=== PATIENT | male | born 1995 | race Two or more races ===

== ENCOUNTER 2021-02-03 11:10 | Emergency (ER) | payer OTHER ==
[~2021-02-03] VITALS: Ht 185.4 cm; Wt 130.0 kg
[2021-02-03] MEDS ORDERED: FAMOTIDINE 20 MG/2 ML IVPush ONE (12:00)
[2021-02-03] MEDS ORDERED: ONDANSETRON 2MG/ML, 2ML IVPush ONE (12:00)
[2021-02-03] MEDS ORDERED: SODIUM CHLORIDE FLUSH 10ML SYR IVF ONE (12:00)
[2021-02-03] MEDS ORDERED: ACETAMINOPHEN 500 MG TABLET PO ONE (12:00)
[2021-02-03] MEDS ORDERED: SODIUM CHLORIDE 0.9% 1,000ML IVBOLUS ONE (12:00)
[2021-02-03] MEDS ORDERED: MAALOX/HYOSCYAMINE/LIDOCAINE 45 ML BTL PO ONE (12:00)
[2021-02-03 12:46] LABS: BASOPHILS % (AUTO) 1 % (0-1); EOSINOPHILS % (AUTO) 0 % (1-7); LYMPHOCYTES % (AUTO) 23 % (22-44); MEAN CORPUSCULAR HEMOGLOBIN 30.1 pg (27.5-34.5); MEAN CORPUSCULAR HGB CONC 33.6 g/dL (33.2-36.2); MEAN PLATELET VOLUME 7.8 fL (7.4-10.4); MONOCYTES % (AUTO) 9 % (2-9); NEUTROPHILS % (AUTO) 68 % (42-75); PLATELET COUNT 203 x10^3/uL (130-400); RED BLOOD COUNT 5.23 x10^6/uL (4.38-5.82); RED CELL DISTRIBUTION WIDTH 13.7 % (9.4-14.8)
[2021-02-03 13:00] LABS: ALANINE AMINOTRANSFERASE 74 U/L (12-78); ALBUMIN 3.7 g/dL (3.4-5.0); ANION GAP 4 mmol/L (5-15); CALCIUM 8.7 mg/dL (8.5-10.1); CHLORIDE 104 mmol/L (98-107)
[2021-02-03 13:03] LABS: ALKALINE PHOSPHATASE 82 U/L (45-117); BILIRUBIN,TOTAL 0.5 mg/dL (0.2-1.0); CREATININE 1.07 mg/dL (0.7-1.3); TOTAL PROTEIN 7.5 g/dL (6.4-8.2)
--- NOTE | 2021-02-03 14:44 | NUR ---
PATIENT AMBULATORY TO ROOM AT THIS TIME.
[2021-02-03] MEDS ORDERED: ONDANSETRON 2MG/ML, 2ML ONE (14:54)
[2021-02-03] MEDS ORDERED: FAMOTIDINE 20 MG/2 ML ONE (14:55)
[2021-02-03] MEDS ORDERED: ACETAMINOPHEN 500 MG TABLET ONE (14:55)
[2021-02-03] MEDS ORDERED: MAALOX/HYOSCYAMINE/LIDOCAINE 45 ML BTL ONE (14:55)
--- NOTE | 2021-02-03 15:08 | NUR ---
PT AMBULATORY TO ROOM T2 W/ C/O N/V AND KAUR STARTED SUNDAY. PT DENIES SORE THROAT/BODY ACHES. NOTED TO HAVE FEVER 100.6 ON ARRIVAL TO ED. 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 PT STATES BROTHER ALSO SICK W/ SIMILAR SX BUT PT'S BROTHER IS NOW IMPROVED. PT RESTING ON GURNEY. NADN. MONITORS APPLIED. VSS. CALL LIGHT IN REACH.
[2021-02-03] MEDS ORDERED: KETOROLAC 30 MG/1 ML ONE (15:55)
[2021-02-03 15:59] VITALS: BP 131/86
--- NOTE | 2021-02-03 15:59 | NUR ---
PT RESTING ON GURNEY. NADN. BERMUDEZ.
[2021-02-03] MEDS ORDERED: KETOROLAC 15 MG/1ML IVPush ONE (16:00)
== END 2021-02-03 16:49 | disposition home or self-care (01) ==
LOC: ED 13:00
DX: U07.1 COVID-19 (principal); R50.9 Fever, unspecified; R51.9 Headache, unspecified
CPT/HCPCS: 36415; 80053; 85025; 96361; 96374; 96375; 99284; J1885; J2405; J7030; U0003; U0005

== ENCOUNTER 2021-02-07 14:44 | Inpatient (IN) | payer OTHER ==
[~2021-02-07] VITALS: Ht 185.4 cm; Wt 123.6 kg
[2021-02-07] MEDS ORDERED: DEXAMETHASONE 4 MG/ML, 1ML PO ONE (16:00)
[2021-02-07 16:35] LABS: BASOPHILS % (AUTO) 1 % (0-1); EOSINOPHILS % (AUTO) 0 % (1-7); LYMPHOCYTES % (AUTO) 13 % (22-44); MEAN CORPUSCULAR HEMOGLOBIN 29.9 pg (27.5-34.5); MEAN CORPUSCULAR HGB CONC 33.5 g/dL (33.2-36.2); MONOCYTES % (AUTO) 8 % (2-9); NEUTROPHILS % (AUTO) 79 % (42-75); PLATELET COUNT 263 x10^3/uL (130-400); RED BLOOD COUNT 5.29 x10^6/uL (4.38-5.82); RED CELL DISTRIBUTION WIDTH 13.8 % (9.4-14.8)
[2021-02-07 16:46] LABS: ALBUMIN 3.4 g/dL (3.4-5.0); ANION GAP 7 mmol/L (5-15); CALCIUM 9.5 mg/dL (8.5-10.1); CHLORIDE 101 mmol/L (98-107)
[2021-02-07 16:47] LABS: CREATININE 1.08 mg/dL (0.7-1.3)
[2021-02-07] MEDS ORDERED: CEFTRIAXONE 1,000 MG in DEXTROSE 5% 50 ML IVPB ONE (20:00)
[2021-02-07] MEDS ORDERED: DOXYCYCLINE 100MG TABLET PO ONE (20:00)
--- NOTE | 2021-02-07 20:14 | NUR ---
PT CAME IN CO SOB. PT WAS TESTED FOR COVID THUSDAY AND HAD A POSTIVE RESULT. PT FOUND TO BE HYPOXIC ON ROOM AIR. NOTIFIED. PT PLACED ON 4 LITERS 02. FATHER BEDSIDE. TBADM. CONNECTED TO ALL MONITORS
[2021-02-07] MEDS ORDERED: DOXYCYCLINE 100MG TABLET ONE (20:16)
[2021-02-07] MEDS ORDERED: DEXAMETHASONE 4 MG/ML, 5ML ONE (20:16)
--- NOTE | 2021-02-07 20:40 | NUR ---
BLOOD CULTURES DRAWN X 2 PRIOR TO ADM OF ABX
[2021-02-07 20:43] LABS: C-REACTIVE PROTEIN, QUANT 8.3 mg/dL (0.02-0.49)
[2021-02-07 20:51] LABS: D-DIMER (DIC) 0.32 ug/mlFEU (0.00-0.52); PROTIME 10.9 Seconds (9.6-11.5)
[2021-02-07] MEDS ORDERED: ONDANSETRON ODT 4 MG PO PRN (21:30)
[2021-02-07] MEDS ORDERED: LABETALOL 5MG/ML, 20ML IVPush PRN (21:30)
[2021-02-07] MEDS ORDERED: ENALAPRILAT 1.25 MG/ML, 2ML IVPush PRN (21:30)
[2021-02-07] MEDS ORDERED: POLYETHYLENE GLYCOL 17 GM PACKET PO PRN (21:30)
[2021-02-07] MEDS ORDERED: KETOROLAC 30 MG/1 ML IV PRN (21:30)
[2021-02-07] MEDS ORDERED: ACETAMINOPHEN 325 MG TABLET PO PRN (21:30)
[2021-02-07] MEDS ORDERED: SODIUM CHLORIDE 0.9% 1,000 ML IV SCH (21:30)
[2021-02-07] MEDS ORDERED: BISACODYL 10 MG SUPP PR PRN (21:30)
[2021-02-07] MEDS ORDERED: ONDANSETRON 2MG/ML, 2ML IVPush PRN (21:30)
[2021-02-07] MEDS ORDERED: DOCUSATE 100 MG CAPSULE PO PRN (21:30)
[2021-02-07 21:53] LABS: ALANINE AMINOTRANSFERASE 93 U/L (12-78); ALBUMIN 3.5 g/dL (3.4-5.0); ANION GAP 11 mmol/L (5-15); CALCIUM 9.4 mg/dL (8.5-10.1); CHLORIDE 101 mmol/L (98-107); CREATININE 1.12 mg/dL (0.7-1.3)
[2021-02-07 21:55] LABS: ALKALINE PHOSPHATASE 91 U/L (45-117); BILIRUBIN,TOTAL 0.5 mg/dL (0.2-1.0)
[2021-02-07] MEDS ORDERED: REMDESIVIR 200 MG in SODIUM CHLORIDE 0.9% 250 ML IVPB ONE (22:30)
[2021-02-07 23:04] VITALS: BP 118/77
[2021-02-07] MEDS: ASCORBIC ACID 500 MG TABLET PO SCH (23:09)
[2021-02-07] MEDS: GUAIFENESIN ER 600 MG TABLET PO SCH (23:09)
[2021-02-07] MEDS: THIAMINE 100MG TABLET PO SCH (23:10)
[2021-02-07] MEDS: CHOLECALCIFEROL 5,000u TAB PO SCH (23:10)
[2021-02-07] MEDS: ENOXAPARIN 40 MG/0.4 ML SQ SCH (23:10)
[2021-02-08 01:12] VITALS: BP 131/76
[2021-02-08 06:27] LABS: BASOPHILS % (AUTO) 0 % (0-1); EOSINOPHILS % (AUTO) 0 % (1-7); LYMPHOCYTES % (AUTO) 18 % (22-44); MEAN CORPUSCULAR HGB CONC 33.5 g/dL (33.2-36.2); MEAN PLATELET VOLUME 7.8 fL (7.4-10.4); MONOCYTES % (AUTO) 11 % (2-9); NEUTROPHILS % (AUTO) 71 % (42-75); PLATELET COUNT 268 x10^3/uL (130-400); RED BLOOD COUNT 4.86 x10^6/uL (4.38-5.82); RED CELL DISTRIBUTION WIDTH 13.7 % (9.4-14.8)
[2021-02-08 06:40] LABS: CHLORIDE 103 mmol/L (98-107)
[2021-02-08 06:46] LABS: ALANINE AMINOTRANSFERASE 91 U/L (12-78); ALBUMIN 2.9 g/dL (3.4-5.0); ALKALINE PHOSPHATASE 85 U/L (45-117); ANION GAP 7 mmol/L (5-15); BILIRUBIN,TOTAL 0.4 mg/dL (0.2-1.0); CALCIUM 8.8 mg/dL (8.5-10.1); CREATININE 0.98 mg/dL (0.7-1.3); TOTAL PROTEIN 7.4 g/dL (6.4-8.2)
[2021-02-08 07:38] VITALS: BP 145/79
[2021-02-08] MEDS: THIAMINE 100MG TABLET PO SCH (11:26)
[2021-02-08] MEDS: GUAIFENESIN ER 600 MG TABLET PO SCH ×2 (11:26→20:33)
[2021-02-08] MEDS: DEXAMETHASONE 4 MG/ML, 1ML IVPush SCH (11:26)
[2021-02-08] MEDS: ASCORBIC ACID 500 MG TABLET PO SCH ×2 (11:27→20:33)
[2021-02-08] MEDS: ZINC SULFATE 220 MG CAPSULE PO SCH (11:27)
[2021-02-08] MEDS: CHOLECALCIFEROL 5,000u TAB PO SCH (11:27)
[2021-02-08] MEDS: DOXYCYCLINE 100MG TABLET PO SCH ×2 (11:27→20:33)
[2021-02-08 12:45] VITALS: BP 135/80
[2021-02-08 19:59] VITALS: BP 135/86
[2021-02-08] MEDS: ENOXAPARIN 40 MG/0.4 ML SQ SCH (20:33)
[2021-02-08] MEDS: CEFTRIAXONE 1,000 MG in DEXTROSE 5% 50 ML IVPB SCH (20:33)
[2021-02-08] MEDS: MELATONIN 5 MG TABLET PO PRN (20:33)
[2021-02-08] MEDS: REMDESIVIR 100 MG in SODIUM CHLORIDE 0.9% 250 ML IVPB SCH (22:21)
[2021-02-09 01:42] VITALS: BP 116/69
[2021-02-09 05:04] LABS: HCT (SEDRATE) 41.9 % (39.2-51.8)
[2021-02-09 05:15] LABS: BASOPHILS % (AUTO) 0 % (0-1); EOSINOPHILS % (AUTO) 0 % (1-7); LYMPHOCYTES % (AUTO) 12 % (22-44); MEAN CORPUSCULAR HEMOGLOBIN 30.3 pg (27.5-34.5); MEAN CORPUSCULAR HGB CONC 33.7 g/dL (33.2-36.2); MEAN PLATELET VOLUME 7.8 fL (7.4-10.4); MONOCYTES % (AUTO) 10 % (2-9); NEUTROPHILS % (AUTO) 78 % (42-75); PLATELET COUNT 300 x10^3/uL (130-400); RED BLOOD COUNT 4.73 x10^6/uL (4.38-5.82)
[2021-02-09 05:16] LABS: ALBUMIN 2.8 g/dL (3.4-5.0); CALCIUM 8.9 mg/dL (8.5-10.1); CHLORIDE 104 mmol/L (98-107)
[2021-02-09 05:31] LABS: ALANINE AMINOTRANSFERASE 136 U/L (12-78); ALKALINE PHOSPHATASE 84 U/L (45-117); ANION GAP 10 mmol/L (5-15); BILIRUBIN,TOTAL 0.4 mg/dL (0.2-1.0); CREATININE 0.67 mg/dL (0.7-1.3); TOTAL PROTEIN 7.1 g/dL (6.4-8.2)
[2021-02-09 07:40] VITALS: BP 121/82
[2021-02-09] MEDS: DEXAMETHASONE 4 MG/ML, 1ML IVPush SCH (09:41)
[2021-02-09] MEDS: CHOLECALCIFEROL 5,000u TAB PO SCH (09:41)
[2021-02-09] MEDS: THIAMINE 100MG TABLET PO SCH (09:41)
[2021-02-09] MEDS: ASCORBIC ACID 500 MG TABLET PO SCH ×2 (09:41→20:34)
[2021-02-09] MEDS: GUAIFENESIN ER 600 MG TABLET PO SCH ×2 (09:41→20:34)
[2021-02-09] MEDS: DOXYCYCLINE 100MG TABLET PO SCH ×2 (09:41→20:35)
[2021-02-09 09:49] VITALS: BP 122/67
[2021-02-09] MEDS: ZINC SULFATE 220 MG CAPSULE PO SCH (13:29)
[2021-02-09 13:56] VITALS: BP 141/76
[2021-02-09] MEDS ORDERED: FAMOTIDINE 20 MG TABLET PO PRN (16:30)
[2021-02-09] MEDS: CEFTRIAXONE 1,000 MG in DEXTROSE 5% 50 ML IVPB SCH (20:34)
[2021-02-09] MEDS: MELATONIN 5 MG TABLET PO PRN (20:35)
[2021-02-09] MEDS: ENOXAPARIN 40 MG/0.4 ML SQ SCH (20:40)
[2021-02-09 20:42] VITALS: BP 134/83
[2021-02-09] MEDS: REMDESIVIR 100 MG in SODIUM CHLORIDE 0.9% 250 ML IVPB SCH (22:41)
[2021-02-10 02:11] VITALS: BP 121/71
[2021-02-10 05:15] LABS: BASOPHILS % (AUTO) 0 % (0-1); EOSINOPHILS % (AUTO) 0 % (1-7); LYMPHOCYTES % (AUTO) 17 % (22-44); MEAN CORPUSCULAR HEMOGLOBIN 30.3 pg (27.5-34.5); MEAN PLATELET VOLUME 7.4 fL (7.4-10.4); MONOCYTES % (AUTO) 12 % (2-9); NEUTROPHILS % (AUTO) 71 % (42-75); PLATELET COUNT 370 x10^3/uL (130-400); RED BLOOD COUNT 4.68 x10^6/uL (4.38-5.82); RED CELL DISTRIBUTION WIDTH 13.6 % (9.4-14.8)
[2021-02-10 05:22] LABS: ANION GAP 8 mmol/L (5-15); CALCIUM 8.9 mg/dL (8.5-10.1); CHLORIDE 107 mmol/L (98-107)
[2021-02-10 05:23] LABS: ALANINE AMINOTRANSFERASE 165 U/L (12-78); ALBUMIN 2.8 g/dL (3.4-5.0)
[2021-02-10 05:25] LABS: ALKALINE PHOSPHATASE 85 U/L (45-117); BILIRUBIN,TOTAL 0.5 mg/dL (0.2-1.0)
[2021-02-10] MEDS: DOXYCYCLINE 100MG TABLET PO SCH ×2 (09:34→21:10)
[2021-02-10] MEDS: ASCORBIC ACID 500 MG TABLET PO SCH ×2 (09:34→21:10)
[2021-02-10] MEDS: GUAIFENESIN ER 600 MG TABLET PO SCH ×2 (09:34→21:10)
[2021-02-10] MEDS: CHOLECALCIFEROL 5,000u TAB PO SCH (09:34)
[2021-02-10] MEDS: THIAMINE 100MG TABLET PO SCH (09:35)
[2021-02-10] MEDS: DEXAMETHASONE 4 MG/ML, 1ML IVPush SCH (09:35)
[2021-02-10 14:34] VITALS: BP 124/78
[2021-02-10] MEDS: ZINC SULFATE 220 MG CAPSULE PO SCH (15:16)
[2021-02-10 19:11] VITALS: BP 137/83
[2021-02-10] MEDS: REMDESIVIR 100 MG in SODIUM CHLORIDE 0.9% 250 ML IVPB SCH (21:10)
[2021-02-10] MEDS: ENOXAPARIN 40 MG/0.4 ML SQ SCH (23:00)
[2021-02-10] MEDS: CEFTRIAXONE 1,000 MG in DEXTROSE 5% 50 ML IVPB SCH (23:00)
[2021-02-11 02:23] VITALS: BP 110/70
[2021-02-11 06:22] VITALS: BP 131/82
[2021-02-11 07:30] LABS: BASOPHILS % (AUTO) 0 % (0-1); EOSINOPHILS % (AUTO) 0 % (1-7); LYMPHOCYTES % (AUTO) 24 % (22-44); MEAN CORPUSCULAR HEMOGLOBIN 29.6 pg (27.5-34.5); MEAN CORPUSCULAR HGB CONC 33.3 g/dL (33.2-36.2); MEAN PLATELET VOLUME 7.3 fL (7.4-10.4); MONOCYTES % (AUTO) 13 % (2-9); NEUTROPHILS % (AUTO) 63 % (42-75); PLATELET COUNT 417 x10^3/uL (130-400); RED BLOOD COUNT 4.78 x10^6/uL (4.38-5.82); RED CELL DISTRIBUTION WIDTH 13.9 % (9.4-14.8)
[2021-02-11 07:35] LABS: ALBUMIN 2.9 g/dL (3.4-5.0); ANION GAP 8 mmol/L (5-15); CALCIUM 8.6 mg/dL (8.5-10.1); CHLORIDE 106 mmol/L (98-107)
[2021-02-11 07:42] LABS: ALANINE AMINOTRANSFERASE 241 U/L (12-78); ALKALINE PHOSPHATASE 82 U/L (45-117); BILIRUBIN,TOTAL 0.6 mg/dL (0.2-1.0); CREATININE 0.65 mg/dL (0.7-1.3)
[2021-02-11 07:43] LABS: C-REACTIVE PROTEIN, QUANT 0.87 mg/dL (0.02-0.49); TOTAL PROTEIN 6.7 g/dL (6.4-8.2)
[2021-02-11] MEDS: THIAMINE 100MG TABLET PO SCH (08:06)
[2021-02-11] MEDS: GUAIFENESIN ER 600 MG TABLET PO SCH (08:06)
[2021-02-11] MEDS: ASCORBIC ACID 500 MG TABLET PO SCH (08:06)
[2021-02-11] MEDS: DOXYCYCLINE 100MG TABLET PO SCH (08:07)
[2021-02-11] MEDS: CHOLECALCIFEROL 5,000u TAB PO SCH (08:07)
[2021-02-11] MEDS: DEXAMETHASONE 4 MG/ML, 1ML IVPush SCH (08:07)
[2021-02-11] MEDS: ZINC SULFATE 220 MG CAPSULE PO SCH (12:34)
== END 2021-02-11 13:40 | disposition home or self-care (01) | DRG 177 ==
LOC: ED 20:00 → EDIP 20:50 → 3N 22:35
PROVIDERS: ADMIT Internal Medicine; ATTEND Family Medicine
PROC: XW033E5 Introduction of Remdesivir Anti-infective into Peripheral Vein, Percutaneous Approach, New Technology Group 5 (ICD-10-PCS; principal; 2021-02-07)
DX: U07.1 COVID-19 (principal); D65 Disseminated intravascular coagulation [defibrination syndrome]; J12.82 Pneumonia due to coronavirus disease 2019; J96.01 Acute respiratory failure with hypoxia; E87.1 Hypo-osmolality and hyponatremia; E66.9 Obesity, unspecified; I10 Essential (primary) hypertension; Z68.37 Body mass index [BMI] 37.0-37.9, adult; R00.0 Tachycardia, unspecified; Z68.36 Body mass index [BMI] 36.0-36.9, adult
CPT/HCPCS: 36415; 71045; 80048; 80053; 82040; 82728; 83605; 83615; 84145; 85025; 85049; 85379; 85384; 85610; 85651; 85730; 86140; 87040; 93005; 96365; 96366; 96375; G0378; J0696; J1100; J1650; J7030; J7050